=== PATIENT | female | born 1945 | race Caucasian/White ===

== ENCOUNTER 2025-02-24 19:54 | Emergency (ER) | payer MEDICARE, SELFPAY ==
[2025-02-24 20:01] VITALS: BP 133/78; PULSE 89; RESP 18; TEMP 36.6; O2SAT 98
--- NOTE | 2025-02-24 21:50 | XR_ITS ---
Examination: CT brain head without contrast. 2-D sagittal coronal reconstructions Date and time of exam: February 24 10:50 PM INDICATIONS: Headache dizziness onset today CTDI: vol (mGy):49.7 DLP: (mGycm):987 Technique: Multiple CT axial sections of the brain have been obtained, 5 mm slice thickness. Contrast has not been administered. 2-D sagittal, coronal reconstructions have been obtained Low dose protocols were performed. One or more of the following dose reduction techniques were used; automated exposure control, adjustment of the mA and/or KV according to patient size, use of iterative reconstruction technique. Findings: No significant ventricular enlargement. Intra-axial or extra-axial hemorrhage density is not seen. No mass effect or midline shift Basal cisterns are not remarkable. Fourth ventricle is midline. Cranial vault intact. Stable encephalomalacia posterior left parietal lobe Impression: Negative for acute hemorrhage, mass effect or midline shift As clinically warranted, brain MRI follow-up would best assess for acute ischemic change
--- NOTE | 2025-02-24 21:50 | EKG_ITS ---
[facility] Test Date: 2025-02-24 Pat Name: MAKENNA SEGAL Department: Room: - Gender: Female Health Care Consultant: : 1945 Requested By: Holley Curry Order Number: [id number] Reading MD: Holley Curry Measurements Intervals [place] Rate: 81 P: -16 GA: 135 QRS: -12 QRSD: 85 T: -3 QT: 326 QTc: 379 Interpretive Statements SINUS RHYTHM MODERATE VOLTAGE CRITERIA FOR LVH, CONSIDER NORMAL VARIANT [MEETS CRITERIA IN ONE OF: R(aVL), S(V1), R(V5), R(V5/V6)+S(V1)] POSSIBLE ANTERIOR MYOCARDIAL INFARCTION , PROBABLY OLD [30 ms Q WAVE IN V3/V4, OR R < 0.2 mV IN V4] Compared to ECG 04/13/2024 16:22:54 No significant changes /store/S0/[id number]/[id number].pdf
--- NOTE | 2025-02-24 21:50 | PD.EDRME ---
Rapid Medical Screening Exam RME Arrival date/time: 02/24/25 19:54 Chief Complaint: Headache Time Seen by Provider: 02/24/25 21:05 Vital signs: Vital Signs Temperature 97.8 F 02/24/25 20:01 Pulse Rate 89 02/24/25 20:01 Respiratory Rate 18 02/24/25 20:01 Blood Pressure 133/78 H 02/24/25 20:01 Pulse Oximetry (%) 98 02/24/25 20:01 Oxygen Delivery Method Room Air 02/24/25 20:01 RME Narrative: 79-year-old female with a past medical history of hypertension, CVA x 2, diabetes, dementia, presents to the ED with a complaint of left-sided headache and dizziness. She has had previous headaches but none this bad. She was seen by her primary care physician today because she thought she had an ear infection. She denies any nausea or vomiting. She has had chills but no fever. She has had a mild cough but no shortness of breath. She denies any numbness, tingling or weakness to her extremities. I have greeted and performed a focused initial assessment of this patient. A comprehensive ED assessment and evaluation of the patient, analysis of all test results, and completion of the medical decision making process will be conducted by additional ED providers.
[2025-02-24 22:21] LABS: Basophils # (Auto) 0.1 Thou/mm3 (0.0-0.2); Basophils % (Auto) 1 % (0-2.5); Eosinophils # (Auto) 0.7 Thou/mm3 (0.0-0.5); Eosinophils % (Auto) 6 % (0-10); Hematocrit 32.5 % (36.0-46.0); Hemoglobin 10.5 g/dL (12.0-16.0); Immature Granulocytes Auto 0.04 Thou/mm3 (0.00-0.00); Lymphocytes # (Auto) 4.4 Thou/mm3 (1.0-4.8); Lymphocytes % (Auto) 40 % (10-50); Mean Corpuscular HGB Conc 32.3 g/dl (31.0-37.0); Mean Corpuscular Hemoglobin 31.5 pg (25.0-35.0); Mean Corpuscular Volume 98 fL (80-100); Monocytes # (Auto) 0.8 Thou/mm3 (0.0-0.8); Monocytes % (Auto) 7 % (0-12); Neutrophils # (Auto) 4.9 Thou/mm3 (1.8-7.7); Neutrophils % (Auto) 45 % (37-80); Nucleated Red Blood Cell # 0.00 Thou/mm3 (0.00-0.00); Nucleated Red Blood Cell % 0 /100 WBC (0); Platelet Count 331 Thou/mm3 (140-440); RDW Standard Deviation 57.5 fL (36.4-46.3); Red Blood Count 3.33 Miln/mm3 (4.00-5.20); White Blood Count 10.9 Thou/mm3 (3.6-11.0)
[2025-02-24 22:35] LABS: INR 1.0 (0.9-1.3); Partial Thromboplastin Time 25.6 Seconds (22.0-36.0); Prothrombin Time 10.7 Seconds (9.0-12.2)
[2025-02-24 22:41] LABS: B-Type Natriuretic Peptide 49 pg/mL (0-100)
[2025-02-24 22:44] LABS: Alanine Aminotransferase 35 U/L (10-49); Albumin, Serum 4.7 gm/dL (3.4-4.8); Albumin/Globulin Ratio 1.7 (1.2-2.2); Alkaline Phosphatase 50 U/L (46-116); Anion Gap 10 (7-16); Aspartate Amino Transferase 46 U/L (0-34); BUN/Creatinine Ratio 12 Ratio (12-20); Bilirubin,Total 0.2 mg/dL (0.3-1.2); Blood Urea Nitrogen 33 mg/dL (9-23); Calcium 10.2 mg/dL (8.3-10.6); Calcium (Corrected) 10.2 mg/dL (8.5-10.1); Carbon Dioxide 24.8 mMol/L (20.0-31.0); Chloride 107 mMol/L (98-107); Creatinine (Component) 2.7 mg/dL (0.6-1.3); Globulin 2.7 gm/dL (2.3-3.5); Glucose 112 mg/dL (74-106); LDH (Lactate Dehydrogenase) 337 U/L (120-246); Magnesium 1.7 mg/dL (1.6-2.6); Osmolality,Calculated 291 (275-295); Potassium 5.0 mMol/L (3.4-5.1); Sodium 142 mMol/L (136-145); Total Protein 7.4 gm/dL (5.7-8.2); Troponin I < 0.020 ng/mL (0.0-0.045); eGFR 18 See Note
[2025-02-24 23:43] LABS: Collection Type, Urine Clean Catch
[2025-02-24 23:49] LABS: Bilirubin,Urine Negative (Negative); Blood,Urine Negative (Negative); Clarity,Urine Clear (Clear/Hazy); Color,Urine Lt-Yellow (Lt Yel-Yel); Glucose, Urine Negative (Negative); Hyaline Casts,Urine < 1 /hpf (0-1); Ketones,Urine Negative (Negative); Leukocyte Esterase,Urine Positive (Negative); Nitrite,Urine Negative (Negative); PH,Urine 6.0 (5.0-7.0); Protein,Urine Negative (Neg - Trace); RBC,Urine 1 /hpf (0-3); Specific Gravity,Urine 1.023 (1.001-1.035); Squamous Epithelial Cell,Urine 1 /hpf (0-5); Urobilinogen,Urine Negative mg/dL (0.0-1.0); WBC,Urine 25 /hpf (0-5)
[2025-02-25 00:54] VITALS: BP 200/94; PULSE 87; RESP 16; TEMP 36.4; O2SAT 98; BMI 32.0
--- NOTE | 2025-02-25 02:19 | PD.EDHA ---
ED Headache RME/HPI General Chief Complaint: Headache Stated Complaint: HEADACHE Time Seen by Provider: 02/24/25 21:05 Arrival date/time: 02/24/25 19:54 RME / HPI RME / HPI Narrative: 79-year-old female with a past medical history of hypertension, CVA x 2, diabetes, dementia, presents to the ED with a complaint of left-sided headache and dizziness. She has had previous headaches but none this bad. She was seen by her primary care physician today because she thought she had an ear infection. She denies any nausea or vomiting. She has had chills but no fever. She has had a mild cough but no shortness of breath. She denies any numbness, tingling or weakness to her extremities. I have greeted and performed a focused initial assessment of this patient. A comprehensive ED assessment and evaluation of the patient, analysis of all test results, and completion of the medical decision making process will be conducted by additional ED providers. DR. CUADRA MAIN ED EVALUATION: 79 y/o female with Hx of CVA's, HTN, and Type II DM presents to ED c/o left-sided headache x 2 days. Patient reports headaches in the past, but did not feel similar. Patient normally takes Tylenol which would resolve her headaches, but experienced no relief after Tylenol today. Denies any vomiting. No other concerns or complaints expressed at this time. Related Data Home Medications ?Medication ?Instructions ?Recorded ?Confirmed dulaglutide 0.75 mg/0.5 mL 0.5 mg subcut QWEEK 04/26/20 07/16/22 subcutaneous pen injector (Trulicity) memantine 5 mg tablet 1 tab PO DAILY 01/03/22 07/16/22 olmesartan 20 mg tablet 1 tab PO DAILY 01/03/22 07/16/22 levothyroxine 25 mcg tablet 25 mcg PO QDAY 01/05/22 07/16/22 loratadine 10 mg tablet 1 tab PO QDAY PRN allergies 01/05/22 07/16/22 montelukast 10 mg tablet 1 tab PO QPM 01/05/22 07/16/22 trazodone 150 mg tablet 1 - 2 tab PO QPM PRN Anxiety 01/05/22 07/16/22 vitamin B comp no.3-folic acid 1 1 tab PO QDAY 01/05/22 07/16/22 mg-vit C 60 mg-biotin 300 mcg tablet (Sue-Matilde Rx) alprazolam 1 mg tablet 1 mg PO TID PRN Anxiety 02/25/22 07/16/22 clopidogrel 75 mg tablet (Plavix) 75 mg PO DAILY 02/25/22 07/16/22 donepezil 10 mg tablet 10 mg PO QPM 02/25/22 07/16/22 ferrous sulfate 325 mg (65 mg 325 mg PO BID 02/25/22 07/16/22 iron) tablet (FeroSul) tiotropium bromide 1.25 2 spray inhalation QDAY 02/25/22 07/16/22 mcg/actuation mist for inhalation (Spiriva Respimat) benazepril 10 mg tablet 10 mg PO QDAY 07/16/22 07/16/22 carvedilol 25 mg tablet (Coreg) 25 mg PO BIDWM 07/16/22 07/16/22 duloxetine 30 mg capsule,delayed 30 mg PO BID 07/16/22 07/16/22 release glipizide 2.5 mg tablet, extended 2.5 mg PO QAM 07/16/22 07/16/22 release 24 hr quetiapine 25 mg tablet 25 mg PO BID 07/16/22 07/16/22 Previous Rx's ?Medication ?Instructions ?Recorded nifedipine 60 mg tablet,extended 60 mg PO QDAY #30 tabs 02/27/22 release atorvastatin 40 mg tablet 40 mg PO QPM #30 tabs 07/17/22 Allergies Allergy/AdvReac Type Severity Reaction Status Date / Time Iodinated Contrast Media Allergy Severe Swelling Verified 02/24/25 19:55 of Lip/Tongue/Throat Review of Systems Review of Systems Systems Reviewed: All systems reviewed, normal except as documented Past Medical History Past Medical History NEUROLOGIC: Positive Cerebrovascular Accident CARDIAC: Positive Cardiac Disorders, Congestive Heart Failure and Hypertension RESPIRATORY: Positive Chronic Obstructive Pulmonary Disease (COPD) GENITOURINARY: Positive Renal Disease ENDOCRINE: Positive Diabetes Mellitus Type 2 and Hypothyroidism PSYCHO/SOCIAL: Positive Depression and Anxiety OTHER HISTORY: Positive Falls Surgical History SURGICAL: Positive Section ED Exam Narrative Physical exam: Generally patient alert and oriented x 3 and in no obvious distress head is normocephalic atraumatic head shows bilateral palpable temporal pulses without swelling or tenderness. Heart regular rate and rhythm lungs auscultation equal bilaterally abdomen soft bowel sounds present nondistended nontender neurologic exam no focal motor or sensory deficits cranial nerves II through XII grossly intact Course Quality Measures none Orders Category Date Time Status Bedside Blood Glucose NOW Care 02/24/25 20:10 Active EKG (ED ONLY) *Do not use* NOW Care 02/24/25 21:[address] head/brain wo con Stat Exams 02/24/25 21:50 Completed EKG (ED Only) Stat Exams 02/24/25 21:50 Draft B-Type Natriuretic Peptide Stat Lab 02/24/25 22:12 Completed CBC Stat Lab 02/24/25 22:12 Completed Comprehensive Metabolic Panel Stat Lab 02/24/25 22:12 Completed LDH (Lactate Dehydrogenase) Stat Lab 02/24/25 22:12 Completed Magnesium Stat Lab 02/24/25 22:12 Completed Partial Thromboplastin Time Stat Lab 02/24/25 22:12 Completed Prothrombin Time with INR Stat Lab 02/24/25 22:12 Completed Troponin I Stat Lab 02/24/25 22:12 Completed Urinalysis Stat Lab 02/24/25 23:28 Completed Ketorolac Inj [Toradol Inj] Med 02/25/25 02:18 Discontinued 15 mg IVP X1 ONE Vital Signs Vital signs: Vital Signs Temperature 97.8 F 02/24/25 20:01 Pulse Rate 89 02/24/25 20:01 Respiratory Rate 18 02/24/25 20:01 Blood Pressure 133/78 H 02/24/25 20:01 Pulse Oximetry (%) 98 02/24/25 20:01 Oxygen Delivery Method Room Air 02/24/25 20:01 Headache MDM Narrative MDM Narrative:: Scribe Attestation: I, Jessica Tran, am scribing for and in the presence of Dr. Cuadra. Provider Notation: Although this document has been carefully reviewed, there may still be some phonetic and other typographical errors.? These errors are purely grammatical due to imperfections in the software program and should not be construed in any way to? compromise the substance of the patient's medical care during this visit. I interpreted all labs. Head CT is negative. I do not suspect suspect temporal arteritis in this patient based on the physical exam. Patient received Toradol 15 mg IV with marked relief. Patient will be discharged in stable condition to follow-up with her primary care physician for further treatment and evaluation. She may return to the emergency room as needed or if condition worsens. Patient data External records reviewed:: [facility] previous records (Reviewed prior ED records from 05/16/24. Patient was seen for Dementia.) Clinical information provided by:: patient Social determinants that could affect healthcare access:: none Patient has the following chronic illnesses:: Cerebrovascular Accident, Dementia, Congestive Heart Failure, Hypertension, Chronic Obstructive Pulmonary Disease (COPD), Renal Disease, Diabetes Mellitus Type 2, Hypothyroidism, Depression and Anxiety How is presenting disease/condition affected by chronic disease/condition?: exacerbated by Evaluation data The following diagnostics were reviewed and interpreted by me:: lab results, radiology exam(s) and EKG tracing(s) Lab and/or radiology exams considered but not ordered:: None Interpretation Summary: RADIOLOGY Head/Brain CT: Findings: No significant ventricular enlargement. Intra-axial or extra-axial hemorrhage density is not seen. No mass effect or midline shift Basal cisterns are not remarkable. Fourth ventricle is midline. Cranial vault intact. Stable encephalomalacia posterior left parietal lobe Impression: Negative for acute hemorrhage, mass effect or midline shift As clinically warranted, brain MRI follow-up would best assess for acute ischemic change Medications / Prescriptions Medications or Prescriptions considered but not ordered:: None Medication administrations:: Medication Administration History Discontinued Medications Ketorolac Tromethamine (Ketorolac Inj 30 Mg/Ml Vial) 15 mg IVP X1 ONE Stop: 02/25/25 02:19 Last Admin: 02/25/25 02:39 Dose: 15 mg Documented By: SM See above Consultations Consultation(s) initiated? (list below): No Diagnosis Differential diagnosis headache: migraine, tension headache, subarachnoid hemorrhage, headache, meningitis, sinusitis and postconcussion syndrome Most likely diagnosis given after review of the tests above:: none Admission Indicated Admission indicated?: not indicated Explain why admission is indicated or not indicated:: Patient does not meet admission criteria. Admission Request Was there a request for admission?: No Disposition Plan Disposition Plan: Discharge Discharge Attestation Discharge Attestation: The patient and all family members were given an opportunity to ask questions and understood the discharge instructions. Discharge instructions specifically effects, indications for sooner follow up or return to the emergency department, and the expected course of current diagnosis. Patient condition: Stable Discharge Plan Plan Patient Disposition: HOME (Self Care) Prescriptions/Referrals Prescriptions/Med Rec: No Action olmesartan 20 mg tablet 1 tab PO DAILY Rx Instructions: hold for sbp<110 memantine 5 mg tablet 1 tab PO DAILY Patient Comments: take 1 tablet by mouth once daily levothyroxine 25 mcg tablet 25 mcg PO QDAY Patient Comments: take 1 tablet by mouth once daily trazodone 150 mg tablet 1 - 2 tab PO QPM PRN (Reason: Anxiety) Patient Comments: take 1 TO 2 tablets by mouth at bedtime if needed for insomnia montelukast 10 mg tablet 1 tab PO QPM Patient Comments: take 1 tablet by mouth every evening loratadine 10 mg tablet 1 tab PO QDAY PRN (Reason: allergies) Patient Comments: take 1 tablet by mouth once daily if needed for SEASONAL ALLERGIES Sue-Matilde Rx 1-60-300 mg-mg-mcg tablet 1 tab PO QDAY Patient Comments: take 1 tablet by mouth once daily Trulicity 0.75 mg/0.5 mL pen injector 0.5 mg SUBCUT QWEEK Patient Comments: inject 0.5 milliliters ( 0.75 milligrams ) subcutaneously every w...(REFER TO PRESCRIPTION NOTES). alprazolam 1 mg tablet 1 mg PO TID PRN (Reason: Anxiety) Patient Comments: take 1 tablet by mouth three times a day if needed for anxiety donepezil 10 mg tablet 10 mg PO QPM Patient Comments: take 1 tablet by mouth every evening clopidogrel [Plavix] 75 mg Tablet 75 mg PO DAILY ferrous sulfate [FeroSul] 325 mg (65 mg iron) tablet 325 mg PO BID Patient Comments: take 1 tablet by mouth twice a day Spiriva Respimat 1.25 mcg/actuation mist 2 spray INHALATION QDAY Patient Comments: inhale 2 puffs by mouth once daily nifedipine 60 mg tablet extended release 60 mg PO QDAY Qty: 30 0RF quetiapine 25 mg tablet 25 mg PO BID glipizide 2.5 mg tablet extended release 24hr 2.5 mg PO QAM Patient Comments: take 1 tablet by mouth once daily WITH BREAKFAST NEEDED FOR FASTING BLOOD SUGAR GREATER THAN 170 benazepril 10 mg tablet 10 mg PO QDAY duloxetine 30 mg capsule,delayed release(DR/EC) 30 mg PO BID carvedilol [Coreg] 25 mg tablet 25 mg PO BIDWM Rx Instructions: must administer with a meal/food atorvastatin 40 mg tablet 40 mg PO QPM Qty: 30 0RF Referrals: Anthony Cote MD [Primary Care Provider] - In 1 week Problem List Clinical Impression: Cephalalgia Patient/Caregiver Discharge Instructions Additional Instructions: Continue home medications. Follow-up with your doctor. Return to ER as needed or if condition worsens. Print Language: Luxembourgish Stand Alone Forms: Greta Award Info., Patient Portal Info Letter
[2025-02-25] MEDS: KETOROLAC INJ 30 MG/ML VIAL 15 MG IVP (02:39)
== END 2025-02-25 03:48 | disposition home or self-care (01) ==
PROVIDERS: Physician Assistant; Emergency Provider Emergency Medicine; PCP Family Medicine
DX: R51.9 Headache, unspecified (principal); R42 Dizziness and giddiness; I11.0 Hypertensive heart disease with heart failure; I50.9 Heart failure, unspecified
CPT/HCPCS: 36415; 70450; 80053; 81001; 83615; 83735; 83880; 84484; 85025; 85610; 85730; 93005; 96374; 99283; J1885